=== PATIENT | male | born 1960 | race Caucasian/White ===

== ENCOUNTER 2019-04-26 10:43 | Day surgery (SDC) | payer OTHER ==
[2019-04-26] MEDS ORDERED: PROPOFOL 40 ML (11:57)
== END 2019-04-26 15:57 | disposition home or self-care (01) ==
LOC: GIL 10:43
DX: Z12.11 Encounter for screening for malignant neoplasm of colon (principal); D12.5 Benign neoplasm of sigmoid colon; K64.8 Other hemorrhoids; I10 Essential (primary) hypertension; K21.9 Gastro-esophageal reflux disease without esophagitis; E66.9 Obesity, unspecified; Z68.34 Body mass index [BMI] 34.0-34.9, adult
CPT/HCPCS: 45380; 88305